=== PATIENT | female | born 1940 | race Caucasian/White ===

== ENCOUNTER 2017-01-05 07:04 | Day surgery (SDC) | payer MEDICARE, BC ==
[2017-01-04 10:50] VITALS: BMI 22.6
[~2017-01-05 07:04] MED LIST: FLU VACC TS2017-18 (>65YR) 0.5 ML SYRINGE IM ONE
[2017-01-05 08:05] VITALS: BP 127/59; TEMP 97.4
--- NOTE | 2017-01-05 11:01 | CT ---
CT CERVICAL SPINE WITH CONTRAST (CT CERVICAL MYELOGRAM): Date: 01-05-17 History: 76-year-old female with right cervical radiculopathy. FINDINGS: There is mild mosaic or hazy ground glass pattern visualized at the lung apices. At the thoracic inl et, there are multiple enlarged lymph nodes just lateral to the lower poles of the thyroid gland and trachea. There are also mildly enlarged upper and mediastinal pretracheal lymph nodes. These are in completely imaged. The left medial supraclavicular lymph node, for example, measures approximately 1 x 1.5 cm at the T1 level. Vertebral body heights are maintained. There is moderate to severe disc space narrowing at C5-6 and C6-7 with mild to moderate endplate irregularity. Minimal degenerative retrolisthesis of C5 on C6 an d C6 on C7. No high grade disc space narrowing at any other level. No moderate or severe degenerativ e facet changes at any level. Cervical spinal cord is normal in size. No Chiari I malformation. C1-2: Moderate degenerative changes at atlanto-odontoid junction. Normal atlantooccipital and atlant oaxial joints. No central stenosis. C2-3: Normal. C3-4: Normal. C4-5: Normal. C5-6: Bilateral moderated sized uncovertebral joint osteophytes encroach upon the bilateral neural f oramina, causing moderate bilateral neural foraminal stenosis. The slight retrolisthesis causes mild central spinal canal stenosis. C6-7: The slight retrolisthesis causes a mild degree of central spinal canal stenosis. Moderate size d bilateral uncovertebral joint osteophytes result in bilateral moderate neural foraminal stenosis. C7-T1: Normal. IMPRESSION: 1. Mild cervical spondylosis, consisting of moderate degenerative disc disease isolated to the C5-6 and C6-7 levels where there is bilateral moderate neural foraminal stenosis. 2. The rest of the cervical spine is essentially normal. 3. Nonspecific heterogeneous ground glass or mild mosaic pattern at the bilateral lung apices. 4. Mildly enlarged medial supraclavicular lymph nodes and upper mediastinal lymph nodes, nonspecific . 5. Left subclavian pacemaker. 6. Signs of previous coronary artery bypass graft surgery. POS: [facility]
[2017-01-05] MEDS ORDERED: Iopamidol-M 300 61% 15 ML VIAL ONE (13:33)
--- NOTE | 2017-01-05 15:48 | CT ---
CT LUMBAR SPINE WITH CONTRAST (CT LUMBAR MYELOGRAM): Date: 01-05-17 History: 76-year-old female with bilateral lumbar radiculopathy and low back pain. FINDINGS: When the patient is supine, there is a 16 degree dextroscoliosis with apex of curvature at L2 (when measured from superior endplate of L1 to inferior endplate of L4). This probably worsens when the pa tient stands. There are five standard lumbar type vertebrae. Vertebral body heights are maintained. No high grade disc space narrowing at any level. Alignment is normal. No spondylolysis or spondylolisthesis. Diffu se disc bulges at L2-3, L3-4, L4-5 and L5-S1. The largest is at L2-4, and causes a mild degree of ce ntral spinal canal stenosis. There is no high grade central spinal canal stenosis or high grade neur al foraminal stenosis at any level. There is no nerve root impingement at any level. There are mild to moderate degenerative facet changes on the right at L4-5, and bilaterally at L5-S1. Vertebral bod y heights are maintained. Conus medullaris terminates at upper L1. IMPRESSION: 1. Lumbar dextroscoliosis. 2. The lumbar spondylosis is mild. 3. No high grade central spinal canal stenosis, high grade neural foraminal stenosis, or nerve root impingement, at any level. POS: [facility]
--- NOTE | 2017-01-05 16:06 | RAD ---
MYELOGRAM CERVICAL MYELOGRAM LUMBAR: 01/05/17 HISTORY: 76-year-old female with right cervical radiculopathy and bilateral lumbar radiculopathy. Patient has pacemaker which precludes MRI. TECHNIQUE: Signed informed consent obtained. Environmental Technology Professor radiographs of the C-spine and L- spine obtained. Patient placed in prone CHINESE position on fluoroscopy table. Skin over lower back prepped and draped in the usual sterile fashion. After confirmation that the conus medullaris terminates superior to the L1-2 level on the prior lumbar spine MRI of 04/28/14, the L1-2 level was selected. 25 gauge needle used to apply buffered lidocaine superficially and deeply. 22 gauge spinal needle advanced into the spinal canal from right paramedian approach under brief, intermittent fluoroscopy. Upon brisk returnof clear CSF, a total of 9 mL of the CSF was removed. A total of 9 mL of Isovue M300 was injected intrathecally under brief, intermittent fluoroscopy. Needle was removed. The table was tilted in prone Trendelenburg position to allow the contrast to flow into the cervical spine. The patient was then taken to CT. The patient tolerated the procedure very well. No complications. FINDINGS: There is ample intrathecal contrast material, but there is also epidural contrast material in the delio mbar spine, and in the cervical spine. There is moderate to severe disc space narrowing with end ana te marginal osteophytes at C5-6 and C6-7. No significant degenerative facet changes. The rest of the disc spaces are maintained. Mild dextroscoliosis of lumbar spine. No high grade disc space narrowing or spondylolisthesis in the lumbar spine. No high grade central spinal canal stenosis in the cervical spine or lumbar spine. Le ft subclavian pacemaker. Cholecystectomy clips. Right carotid endarterectomy clips. IMPRESSION: 1. Successful cervical and lumbar myelogram. 2. Predominantly mild cervical spondylosis, consisting of moderate degenerative disc disease is olated to the C5-6 and C6-7 levels. The rest of the cervical spine is relatively normal. 3. Mild dextroscoliosis of lumbar spine. 4. No central stenosis of lumbar spine. 5. See separate report of the CT myelograms. 6. Status post cholecystectomy, right carotid endarterectomy, pacemaker placement, and coronary artery bypass graft surgery. POS: [facility]
== END 2017-01-05 10:40 | disposition home or self-care (01) ==
LOC: RAD 07:04
PROVIDERS: ATTEND Neurological Surgery
PROC: B00B1ZZ Plain Radiography of Spinal Cord using Low Osmolar Contrast (ICD-10-PCS; principal; 2017-01-05)
DX: M54.12 Radiculopathy, cervical region (principal); M54.16 Radiculopathy, lumbar region; E11.9 Type 2 diabetes mellitus without complications; E78.5 Hyperlipidemia, unspecified; I44.7 Left bundle-branch block, unspecified; K21.9 Gastro-esophageal reflux disease without esophagitis; J44.9 Chronic obstructive pulmonary disease, unspecified; I50.9 Heart failure, unspecified; I42.9 Cardiomyopathy, unspecified; Z88.1 Allergy status to other antibiotic agents; Z88.5 Allergy status to narcotic agent; Z88.8 Allergy status to other drugs, medicaments and biological substances; Z79.899 Other long term (current) drug therapy; Z95.0 Presence of cardiac pacemaker; Z90.49 Acquired absence of other specified parts of digestive tract; Z98.890 Other specified postprocedural states; Z87.891 Personal history of nicotine dependence
CPT/HCPCS: 62305; 72126; 72132

== ENCOUNTER 2017-03-22 05:37 | Day surgery (SDC) | payer MEDICARE, BC ==
[2017-03-21 09:06] VITALS: BMI 22.4
--- NOTE | 2017-03-21 21:16 | HP ---
HISTORY OF PRESENT ILLNESS: Ms. Torrez is a 76-year-old woman who presents for evaluation of signific ant right upper extremity C7 pain that began 2 weeks ago. She has not had any of these symptoms befo re. She has bilateral L5 radicular pain as well that she has had for many years, but is not currentl y very concerned with that. She has a CT myelogram from [facility] that reveals C6-C7 patho logy that fits both her symptoms and as such would like to be treated. PAST MEDICAL HISTORY: Diabetes, cardiac arrhythmia, coronary arterial disease. CURRENT MEDICATIONS: Atorvastatin, Zantac, aspirin, nitroglycerin, clonidine, losartan, nifedipine, Ranexa, furosemide, clopidogrel, carvedilol, Premarin, zolpidem, lorazepam, Lantus, metformin. ALLERGIES: DARVOCET, SULFACETAMIDE, TRAMADOL, OPIUM, CODEINE, ADHESIVE BANDAGES, EPINEPHRINE, CIPRO, LEVAQUIN, OMNICEF, and ATORVASTATIN. PHYSICAL EXAMINATION: PSYCHIATRIC: Patient is alert and oriented x3. NEUROLOGIC: Gait is normal, no ataxia. She does have restricted mobility in upper extremities and n maida secondary to pain. She has sensory disturbance over C6-C7 distribution. ASSESSMENT: Cervical radiculopathy. PLAN: Dr. Tejada met with the patient, reviewed imaging. He advocated C7 ACDF. He explained t o the patient the risks, benefits, and alternatives to the procedure. The patient expressed understa nding and would like to move forward with surgery as discussed. I do believe the patient is mentally competent and capable of making medical decisions for herself and we will move forward with surgery as planned.
[2017-03-22] MEDS ORDERED: Fentanyl 100 MCG/2 ML VIAL ONE ×2 (06:04→09:03)
[2017-03-22] MEDS ORDERED: Midazolam HCl 2 mg/2 ml Vial ONE (06:04)
[2017-03-22] MEDS ORDERED: Thrombin 5000 UNITS/5 ML VIAL ONE (06:19)
[2017-03-22] MEDS ORDERED: CEFAZOLIN/Water 2 GM/20 ML SYRINGE ONE (06:20)
[2017-03-22 06:28] LABS: Mean Corpuscular HGB CONC 32.5 g/dL (32.0-36.0); Mean Corpuscular Hemoglobin 31.1 pg (27.0-31.0); Mean Corpuscular Volume 95.6 fl (81.0-99.0); Mean Platelet Volume 6.4 fL (7.4-10.4); Platelet Count 256 thou/uL (130-400); RBC Distribution Width 12.8 % (11.5-14.5); Red Blood Cell (RBC) Count 4.18 mill/uL (4.20-5.40)
[2017-03-22] MEDS ORDERED: Lidocaine 1% w/Epinephrine 1:200K 30 ML VIAL ONE (06:42)
[2017-03-22 06:47] LABS: Anion Gap 13 mmol/L (10-20); BUN (Urea Nitrogen) 13 mg/dL (9.8-20.1); Calc. Creatinine Clearance 45 mL/min (70-130); Calcium 10.3 mg/dL (7.8-10.44); Carbon Dioxide 25 mmol/L (23-31); Chloride 99 mmol/L (98-107); Estimated GFR-MDRD 63; Glucose 109 mg/dL (83-110); Potassium 4.4 mmol/L (3.5-5.1); Sodium 133 mmol/L (136-145)
[2017-03-22] MEDS ORDERED: Vancomycin HCl 500 MG VIAL ONE (07:00)
[2017-03-22] MEDS ORDERED: Meperidine HCl/PF 25 MG/ML VIAL SLOW IVP PRN (07:50)
[2017-03-22] MEDS ORDERED: Promethazine HCl 25 MG/ML VIAL SLOW IVP PRN (07:50)
--- NOTE | 2017-03-22 09:42 | OP ---
DATE OF PROCEDURE: 03/22/2017 SURGEON: Shawn Tejada M.D. SEAT TRIMMER: Orlin Emery PA-C INDICATION: Pain. DIAGNOSIS: Cervical radiculopathy. PROCEDURE: Anterior cervical discectomy and fusion C6-7. ANESTHESIA: General. TECHNIQUE: The patient was brought into the operating room and placed under general anesthesia. She was placed on the table in a supine position. A transverse incision was planned over the lateral as pect of the neck on the right. After prepping and draping and after an appropriate operative pause, the incision was created. The underlying platysma muscle was identified and incised. A blunt tissue plane anterior to the sternocleidomastoid muscle was used to gain access to the prevertebral space. Self-retaining retractors were placed in the wound for optimal exposure. After confirming the appro priate location, an annulotomy was performed in the C6-7 disk space. Under distraction, all disk mat erial as well as anterior and posterior osteophytes were removed. After complete decompression, a 6 mm lordotic PEEK cage packed with allograft and autograft material was placed within the interbody sp michel. An anterior cervical plate was then fashioned to the front of the spine and secured with a tota l of 4 fixed screws. Midline and lateral structures were inspected and found to be free from signifi cant trauma. The wound was irrigated. Hemostasis was maintained throughout. The wound was then rodolfo sed in anatomic layers and a pressure dressing was applied. There were no known procedural complicat ions.
[2017-03-22] MEDS ORDERED: PHENYLEPHRINE-NS 100 MCG/ML 10 ML SYRINGE ONE (13:30)
[2017-03-22] MEDS ORDERED: Succinylcholine Chloride 20 MG/ML 10 ml SYRINGE FS ONE (13:30)
[2017-03-22] MEDS ORDERED: Naloxone HCl 0.4 mg/ml Vial ONE (13:30)
[2017-03-22] MEDS ORDERED: ePHEDrine/0.9% NaCl/PF SYRINGE 50 mg/10 ml ONE (13:30)
[2017-03-22] MEDS ORDERED: Dexamethasone 20 MG/5 ML VIAL ONE (13:30)
[2017-03-22] MEDS ORDERED: Lidocaine 1% PF 5 ML VIAL ONE (13:30)
[2017-03-22] MEDS ORDERED: Ondansetron HCl/PF 4 MG/2 ML Vial ONE (13:30)
[2017-03-22] MEDS ORDERED: Glycopyrrolate 0.2 MG/ML 5 ML SYRINGE ONE (13:30)
[2017-03-22] MEDS ORDERED: Propofol 200 MG/20 ML VIAL ONE (13:30)
--- NOTE | 2017-03-22 14:56 | OP ---
PREOPERATIVE DIAGNOSES: 1. Cervical myelopathy. 2. Need for anterior approach for anterior cervical disk fusion surgery. SURGEON: Hernandez [place] M.D. PHOTO RETOUCHER: Orlin Emery PA-C ESTIMATED BLOOD LOSS: 0 mL COMPLICATIONS: None. ANESTHESIA: GETA with laryngeal nerve monitor. PROCEDURE: 1. Anterior approach to anterior cervical disk fusion surgery. 2. Intraoperative laryngeal nerve monitoring. DESCRIPTION OF PROCEDURE: The patient taken to the operating room and placed supine on the table. G eneral endotracheal anesthesia was obtained by the Anesthesia staff. Direct laryngoscope was used to confirm that the electrodes were within the true vocal cords bilaterally. Following this, tube was secured in the midline of the upper left. Patient was prepped and draped in standard surgical fashio n. An incision approximately 2 cm above the clavicle was then made in a horizontal fashion and skin crease overlying the area of C6/C7. Following this, skin and subcutaneous tissue was incised. Subpl atysmal flaps were elevated superiorly and anteriorly. The fascia of the sternocleidomastoid was aldo ntified and was staying just anterior to this. Dissection was carried medial. The great vessels in the sternocleidomastoid were retracted laterally as the laryngeal structures and the thyroid were ret racted medially. This exposed adequate exposure of the prevertebral space and vertebral bodies of th e appropriate cervical vertebrae. The patient was then turned over to care of Dr. Shawn bello
== END 2017-03-22 12:15 | disposition home or self-care (01) ==
LOC: SDC 05:37
PROVIDERS: ATTEND Neurological Surgery
PROC: 0RG10A0 Fusion of Cervical Vertebral Joint with Interbody Fusion Device, Anterior Approach, Anterior Column, Open Approach (ICD-10-PCS; principal; 2017-03-22)
PROC: 0RT30ZZ Resection of Cervical Vertebral Disc, Open Approach (ICD-10-PCS; 2017-03-22)
DX: M54.12 Radiculopathy, cervical region (principal); M25.78 Osteophyte, vertebrae; E11.9 Type 2 diabetes mellitus without complications; I49.9 Cardiac arrhythmia, unspecified; I25.10 Atherosclerotic heart disease of native coronary artery without angina pectoris; I11.0 Hypertensive heart disease with heart failure; I50.22 Chronic systolic (congestive) heart failure; K21.9 Gastro-esophageal reflux disease without esophagitis; E78.5 Hyperlipidemia, unspecified; I44.7 Left bundle-branch block, unspecified; J44.9 Chronic obstructive pulmonary disease, unspecified; Z79.02 Long term (current) use of antithrombotics/antiplatelets; Z79.82 Long term (current) use of aspirin; Z79.890 Hormone replacement therapy; Z79.4 Long term (current) use of insulin; Z79.899 Other long term (current) drug therapy; Z88.5 Allergy status to narcotic agent; Z88.8 Allergy status to other drugs, medicaments and biological substances; Z88.1 Allergy status to other antibiotic agents; Z91.011 Allergy to milk products; Z95.0 Presence of cardiac pacemaker; Z90.710 Acquired absence of both cervix and uterus; Z98.890 Other specified postprocedural states
CPT/HCPCS: 20930; 20936; 22551; 22845; 22853; 76001; 80048; 85027; 93005; 96374; C1713; 93010; J1100; J2001; J2250; J2310; J2405; J2704; J3010; J3370

== ENCOUNTER 2017-03-26 06:10 | Inpatient (IN) | payer MEDICARE, BC ==
[2017-03-26 07:02] LABS: Actual Bicarbonate (HCO3a) 26.1 mEq/L (22-26); Base Excess (BEa) 0.3 mEq/L (0 (+/-) 2.5); Hemoglobin (Hb) 11.7 g/dL (12.0-16.0); pH, Arterial 7.36 (7.35-7.45)
[2017-03-26 07:02] LABS: #Eosinphils 0.1 thou/uL (0.0-0.7); #Lymphocytes 1.1 thou/uL (1.20-3.40); #Monocytes 0.7 thou/uL (0.11-0.59); #Neutrophils 9.1 thou/uL (1.40-6.50); %Basophils 0.2 % (0.0-1.0); %Eosinophils 1.1 % (0.0-10.0); %Lymphocytes 10.3 % (21.0-51.0); %Monocytes 6.5 % (0.0-10.0); %Neutrophils 81.9 % (42.0-75.0); Hemoglobin 13.4 g/dL (12.0-16.0); Mean Corpuscular HGB CONC 32.9 g/dL (32.0-36.0); Mean Corpuscular Hemoglobin 30.9 pg (27.0-31.0); Mean Corpuscular Volume 94.2 fl (81.0-99.0); Mean Platelet Volume 6.6 fL (7.4-10.4); Platelet Count 280 thou/uL (130-400); RBC Distribution Width 12.6 % (11.5-14.5); Red Blood Cell (RBC) Count 4.32 mill/uL (4.20-5.40); White Blood Cell (WBC) Count 11.1 thou/uL (4.8-10.8)
[2017-03-26 07:03] LABS: Analyzer IN Cardio ER; Calcium, Ionized 1.2 mmol/L (1.12-1.30); Puncture Site RRA
[2017-03-26 07:21] LABS: ALT (SGPT) 9 U/L (8-55); AST (SGOT) 10 U/L (5-34); Alkaline Phosphatase 78 U/L (40-150); Anion Gap 14 mmol/L (10-20); BUN (Urea Nitrogen) 9 mg/dL (9.8-20.1); Bilirubin, Total 0.7 mg/dL (0.2-1.2); CK (CPK) 37 U/L (29-168); Calc. Creatinine Clearance 0 mL/min (70-130); Calcium 9.9 mg/dL (7.8-10.44); Carbon Dioxide 25 mmol/L (23-31); Chloride 92 mmol/L (98-107); Estimated GFR-MDRD 68; Globulin 3.3 g/dL (2.4-3.5); Glucose 166 mg/dL (83-110); Potassium 4.8 mmol/L (3.5-5.1); Protein, Total 7.3 g/dL (6.0-8.3); Sodium 126 mmol/L (136-145)
[2017-03-26 07:27] LABS: CKMB 1.2 ng/mL (0-6.6); Troponin I 0.212 ng/mL (< 0.028)
--- NOTE | 2017-03-26 07:41 | RAD ---
CHEST 1 VIEW: Date: 03/26/17 HISTORY: 75-year-old female for dyspnea and worsening shortness of breath. COMPARISON: 08/04/14. FINDINGS: Left ICD. Postop midline sternotomy. Prominent linear, interstitial, reticulonodular parenchymal case ges bilaterally which have certainly worsened when compared to the prior study of 08/05/15, raising c oncern for bilateral interstitial edema or nonspecific interstitial atypical pneumonia or pneumonitis . Slight blunting of the costophrenic angles probably representing some pleural fluid. No significant cardiomegaly. IMPRESSION: Fairly extensive widespread interstitial parenchymal changes bilaterally which have developed since t he prior 08/05/15 study. Interstitial edema, interstitial pneumonitis are certainly considerations. S hort-term follow-up for clearing or stability. POS: [facility]
[2017-03-26] MEDS ORDERED: Nitroglycerin 2% Ointment 1 INCH/1 GM Packet ONE (08:25)
[2017-03-26] MEDS ORDERED: Cefepime 2 GM/10 ML SYR ONE (08:26)
[2017-03-26] MEDS ORDERED: Dextrose 50% Abboject 50 ML SYRINGE SLOW IVP PRN (08:55)
[2017-03-26] MEDS ORDERED: Dextrose 5% in Water 1,000 ML IV PRN (08:55)
[2017-03-26] MEDS ORDERED: Insulin Regular 300 UNITS/3 ML VIAL SC PRN (08:55)
[2017-03-26] MEDS ORDERED: diphenhydrAMINE 50 MG/ML VIAL ONE (09:51)
[2017-03-26 10:18] LABS: Troponin I 0.224 ng/mL (< 0.028)
[2017-03-26] MEDS ORDERED: Famotidine/PF 20 mg/2ml Vial SLOW IVP SCH ×2 (10:49→11:30)
[2017-03-26] MEDS ORDERED: INSULIN GLARGINE HUM REC ANLOG 18 UNIT SQ SCH (10:49)
[2017-03-26] MEDS ORDERED: NIFEdipine XL 30 MG TAB PO SCH ×2 (10:49→11:30)
[2017-03-26] MEDS ORDERED: Clopidogrel Bisulfate 75 MG TAB PO SCH ×2 (10:49→11:30)
[2017-03-26] MEDS ORDERED: Non-Formulary Item 1 EACH (Ranolazine [Ranexa] 1,000 MG) PO SCH (10:49)
[2017-03-26] MEDS ORDERED: Cefepime 2 GM in Sodium Chloride 0.9% 100 ML IVPB SCH (10:49)
[2017-03-26] MEDS ORDERED: Aspirin 325 mg Enteric Coated Tablet PO SCH ×2 (10:49→11:30)
[2017-03-26] MEDS ORDERED: Non-Formulary Item 1 EACH (Carvedilol [Coreg] 25 MG) PO SCH (10:49)
[2017-03-26] MEDS ORDERED: Enoxaparin Sodium 40 MG/0.4 ML SYRINGE SC SCH ×2 (10:49→11:30)
[2017-03-26] MEDS ORDERED: Vancomycin HCl 1 GM in Sodium Chloride 0.9% 250 ML 250 ML IVPB SCH (10:49)
[2017-03-26 10:52] VITALS: BMI 19.5
[2017-03-26] MEDS ORDERED: Carvedilol 25 MG TAB PO SCH (11:30)
[2017-03-26] MEDS: Sodium Chloride 0.9% 1,000 ML IV SCH (11:51)
[2017-03-26] MEDS ORDERED: Insulin Detemir 100 UNITS/ML 18 UNITS in Pre-Filled Syringe 1 EACH SC SCH (12:00)
[2017-03-26] MEDS: Furosemide 40 MG/4 ML VIAL SLOW IVP SCH (12:11)
[2017-03-26 13:10] LABS: Troponin I 0.289 ng/mL (< 0.028)
[2017-03-26 13:30] LABS: Free T4 (Free Thyroxine) 1.26 ng/dL (0.70-1.48); Thyroid Stimulating Hormone 1.5012 uIU/mL (0.35-4.94)
[2017-03-26] MEDS ORDERED: Furosemide 40 MG/4 ML VIAL SLOW IVP SCH (14:00)
--- NOTE | 2017-03-26 14:25 | HP ---
HISTORY OF PRESENT ILLNESS: Ms. Torrez is a 76-year-old woman. She had spine surgery on of last week and one day later she started experiencing some shortness of breath, positive co ugh. The shortness of breath has been increasing to the point that she had to come to the ER earlier today. In the ER, she was evaluated and she was found to have bilateral pneumonia along with possib le CHF. She is being admitted for management. She denies any associated fever. PAST MEDICAL HISTORY: Remarkable for hypertension, diabetes mellitus, coronary artery disease, CHF, COPD, cerebrovascular accident. PAST SURGICAL HISTORY: Remarkable for CABG, pacemaker placement, carotid endarterectomy, shoulder montesinos rgery, cholecystectomy, appendectomy, tonsillectomy. ALLERGIES: She has allergy to CEFDINIR, CIPROFLOXACIN, CODEINE, DARVOCET, EPINEPHRINE, LEVOFLOXACIN, PROPOXYPHENE, SULFA, TRAMADOL, ULTRAM, VICODIN. SOCIAL HISTORY: She quit smoking when she was 21-year-old and even at that time she was not a heavy smoker. She denies ETOH abuse. She denies drug abuse. FAMILY HISTORY: Reviewed and is not contributory. HOME MEDICATIONS: Reviewed. REVIEW OF SYSTEMS: Constitutional: Denies any fever. Admits to some weakness. HEENT: No headache , no ocular pain, no sore throat, no rhinorrhea, no earache, no epistaxis. Neck: Some neck pain ass ociated with recent surgery. Cardiovascular: Admit to shortness of breath. No chest pain. Pulmona ry: Productive cough. Gastrointestinal: She has diarrhea on and off. There is no nausea, no vomit ing, no abdominal pain. Genitourinary: No dysuria, no hematuria. Endocrinology: No heat or cold i ntolerance. No polyuria, polydipsia, or polyphagia. Musculoskeletal: Admits to arthritis. Hematol ogy: No abnormal bleeding. No ecchymosis. Lymphatic: No palpable lymphadenopathy. No painful lym phadenopathy. Skin: No rash, no itching. Allergies: No hayfever. Neurologic: No seizure. Psych iatric: No anxiety, no depression. PHYSICAL EXAMINATION: GENERAL: At the current time, she is alert, oriented, with nasal cannula. VITAL SIGNS: Temperature of 98.1, pulse rate 91, respiratory rate 26, blood pressure 141/72. HEENT: Her head is normocephalic and atraumatic. Pupils are equally reactive. Ears and nose normal . Oral mucosa is moist. Pharyngeal area is clear with no exudate, no hyperemia. NECK: Supple. There is no distention of the jugular vein. No lymphadenopathy felt. Thyroid gland not palpable. There is no carotid bruit. CHEST: Symmetrical with regular S1 and S2. LUNGS: Show some rhonchi. ABDOMEN: Soft. Bowel sounds are heard. I could not appreciate any organomegaly. There is no focal area of tenderness. EXTREMITIES: Limbs showed no edema. NEUROLOGIC: She moves all extremities. LABORATORY DATA: CBC showed WBC 11.1, hemoglobin of 13.4, hematocrit of 40.7, MCV of 94.2, platelet of 280. Chemistry and electrolytes show sodium of 126, potassium 4.8, chloride 92, CO2 of 25, BUN 9, creatinine 0.8, glucose 166, calcium 9.9, total bilirubin 0.7, AST 10, ALT 9, alkaline phosphatase 7 8. Troponin was noticed to be elevated at 0.212. BNP is elevated at 600.3. Albumin is 4, globulin 3.3. Chest x-ray was reported to show widespread interstitial parenchymal changes bilaterally, possi ble interstitial edema versus pneumonitis. ASSESSMENT AND PLAN: This is a 76-year-old woman with history of hypertension, diabetes me llitus, coronary artery disease, congestive heart failure, chronic obstructive pulmonary disease, cer ebrovascular accident, who is status post C-spine surgery less than 1 week ago who came in with incre asing shortness of breath. Chest x-ray result is as we indicated earlier. At this time, we suspect possible aspiration versus pneumonia along with congestive heart failure. The patient will be starte d on broad spectrum antibiotic for possible healthcare associated pneumonia and we will start her als o on Lasix. Her serum sodium was noticed to be low consistent with history of congestive heart failu re. We will start her on Lasix as mentioned earlier. She will also be on fluid restriction. The pa lisa was noticed to have troponin elevated, which will be followed and addressed appropriately. The patient will be admitted to telemetry. Further evaluation and management will depend on her course of the hospitalization and her response to therapy.
[2017-03-26] MEDS ORDERED: Nitroglycerin 2% Ointment 1 INCH/1 GM Packet TOP SCH (16:00)
[2017-03-26] MEDS: Acetaminophen 325 MG TAB PO PRN (16:51)
[2017-03-26] MEDS: Losartan 25 MG TAB PO SCH (21:00)
[2017-03-26] MEDS: Famotidine/PF 20 mg/2ml Vial SLOW IVP SCH (21:00)
[2017-03-26] MEDS: Cefepime 2 GM, Syringe 2.5 ML in Sterile Water 10 ML SLOW IVP SCH (21:00)
[2017-03-26] MEDS: Carvedilol 25 MG TAB PO SCH (21:00)
[2017-03-26] MEDS: Vancomycin HCl 1 GM in Premix Bag 1 BAG IVPB SCH (21:01)
[2017-03-26] MEDS: Zolpidem Tartrate 5 MG TAB PO PRN (22:42)
[2017-03-27] MEDS: HYDROcodone/Acetaminophen 5/325 mg Tablet PO PRN ×2 (04:36→11:52)
[2017-03-27 05:08] LABS: #Eosinphils 0.2 thou/uL (0.0-0.7); #Monocytes 0.7 thou/uL (0.11-0.59); #Neutrophils 4.2 thou/uL (1.40-6.50); %Basophils 0.7 % (0.0-1.0); %Eosinophils 3.5 % (0.0-10.0); %Lymphocytes 16.1 % (21.0-51.0); %Monocytes 11.6 % (0.0-10.0); %Neutrophils 68.1 % (42.0-75.0); Hemoglobin 11.3 g/dL (12.0-16.0); Mean Corpuscular HGB CONC 32.2 g/dL (32.0-36.0); Mean Corpuscular Hemoglobin 30.5 pg (27.0-31.0); Mean Corpuscular Volume 94.6 fl (81.0-99.0); Mean Platelet Volume 6.2 fL (7.4-10.4); Platelet Count 267 thou/uL (130-400); RBC Distribution Width 12.5 % (11.5-14.5); Red Blood Cell (RBC) Count 3.71 mill/uL (4.20-5.40); White Blood Cell (WBC) Count 6.2 thou/uL (4.8-10.8)
[2017-03-27 05:23] LABS: Anion Gap 12 mmol/L (10-20); BUN (Urea Nitrogen) 8 mg/dL (9.8-20.1); Calc. Creatinine Clearance 52 mL/min (70-130); Calcium 9.5 mg/dL (7.8-10.44); Carbon Dioxide 27 mmol/L (23-31); Chloride 94 mmol/L (98-107); Estimated GFR-MDRD 75; Glucose 109 mg/dL (83-110); Potassium 3.9 mmol/L (3.5-5.1); Sodium 129 mmol/L (136-145)
[2017-03-27] MEDS: Furosemide 40 MG/4 ML VIAL SLOW IVP SCH (06:03)
[2017-03-27] MEDS: Vancomycin HCl 1 GM in Premix Bag 1 BAG IVPB SCH ×2 (09:00→20:41)
[2017-03-27] MEDS: Cefepime 2 GM, Syringe 2.5 ML in Sterile Water 10 ML SLOW IVP SCH ×2 (09:00→20:41)
[2017-03-27] MEDS: Insulin Detemir 100 UNITS/ML 18 UNITS in Pre-Filled Syringe 1 EACH SC SCH (09:01)
[2017-03-27] MEDS: NIFEdipine XL 30 MG TAB PO SCH (09:02)
[2017-03-27] MEDS: Carvedilol 25 MG TAB PO SCH ×2 (09:02→20:33)
[2017-03-27] MEDS: Clopidogrel Bisulfate 75 MG TAB PO SCH (09:02)
[2017-03-27] MEDS: Famotidine/PF 20 mg/2ml Vial SLOW IVP SCH ×2 (09:02→20:33)
[2017-03-27] MEDS: Aspirin 325 mg Enteric Coated Tablet PO SCH (09:02)
[2017-03-27] MEDS: Enoxaparin Sodium 40 MG/0.4 ML SYRINGE SC SCH (09:03)
--- NOTE | 2017-03-27 11:21 | PDOC.PN ---
- Subjective Encounter Start Date: 03/27/17 Encounter Start Time: 11:20 Ms. Torrez was seen today in follow-up of pneumonia. She is laying flat in bed, and does not appear to be in any distress. She says she is breathing better. She does not have any chest pain. She informs be that her serum sodium is " always low". She says her appetite is better. - Objective Resuscitation Status: Resuscitation Status FULL:Full Resuscitation MAR Reviewed: Yes Vital Signs & Weight: Vital Signs (12 hours) Temp Pulse Resp BP Pulse Ox 03/27/17 09:02 92 03/27/17 08:00 97.6 F 92 16 148/68 H 97 03/27/17 03:04 98.3 F 88 16 162/70 H 85 L 03/27/17 00:13 95 Weight Weight 115 lb 14.4 oz I&O: 03/26/17 03/27/17 03/28/17 06:59 06:59 06:59 Intake Total 1564 Balance 1564 Result Diagrams: 03/27/17 04:34 03/27/17 04:34 Additional Labs: Accuchecks 03/27/17 03/27/17 03/26/17 10:56 05:44 20:54 POC Glucose 276 H 120 H 277 H 03/26/17 16:59 POC Glucose 132 H Phys Exam - Physical Examination HEENT: PERRLA + rales boltaerally no rhonchi Cardiovascular: RRR, no significant murmur, no rub Gastrointestinal: soft, non-tender, positive bowel sounds Musculoskeletal: no edema Dx/Plan (1) Pneumonia Code(s): J18.9 - PNEUMONIA, UNSPECIFIED ORGANISM Status: Acute (2) Chronic systolic heart failure Code(s): I50.22 - CHRONIC SYSTOLIC (CONGESTIVE) HEART FAILURE Status: Acute (3) Diabetes mellitus type 2 in nonobese Code(s): E11.9 - TYPE 2 DIABETES MELLITUS WITHOUT COMPLICATIONS Status: Acute (4) Afib Code(s): I48.91 - UNSPECIFIED ATRIAL FIBRILLATION Status: Acute - Plan * Acute respiratory distress- likely from Pneumonia.- Possible Healthcare Associated- continue Levaquin Cefepime, and Vancomycin * Can consider de-escalating antibiotics in AM if stable * Chronic systolic heart failure- compensated- will check Echo to assess EF, * DM- blood glucose is slightly elevated- will re-start Metformin * HTN- blood pressure is elevated- will monitor, continue PRN medication as well * CAD- stable
[2017-03-27] MEDS: Sodium Chloride 0.9% 1,000 ML IV SCH (11:58)
[2017-03-27] MEDS: Acetaminophen 325 MG TAB PO PRN (14:15)
[2017-03-27] MEDS: Ondansetron HCl/PF 4 MG/2 ML Vial IVP PRN ×2 (14:15→20:41)
[2017-03-27] MEDS ORDERED: Nitroglycerin 0.4 MG TAB (25 Tab Bottle) ONE (14:18)
[2017-03-27] MEDS: Bisacodyl 5 MG TAB PO PRN (14:18)
[2017-03-27] MEDS ORDERED: Nitroglycerin 0.4 MG TAB (25 Tab Bottle) SL PRN (15:26)
[2017-03-27] MEDS: metFORMIN 500 MG TAB PO SCH (16:02)
[2017-03-27 20:14] LABS: Vancomycin, Trough 17.2 ug/mL
[2017-03-27] MEDS: Magnesium Oxide 250 MG TAB PO SCH (20:33)
[2017-03-27] MEDS: Atorvastatin Calcium 10 MG TAB PO SCH (20:33)
[2017-03-27] MEDS: Lorazepam 1 MG TAB PO SCH (20:33)
[2017-03-27] MEDS: Losartan 25 MG TAB PO SCH ×2 (20:34)
[2017-03-27] MEDS: Zolpidem Tartrate 5 MG TAB PO PRN (22:50)
[2017-03-28 05:56] LABS: Anion Gap 11 mmol/L (10-20); BUN (Urea Nitrogen) 6 mg/dL (9.8-20.1); Calc. Creatinine Clearance 54 mL/min (70-130); Calcium 9.2 mg/dL (7.8-10.44); Carbon Dioxide 29 mmol/L (23-31); Chloride 87 mmol/L (98-107); Estimated GFR-MDRD 76; Glucose 143 mg/dL (83-110); Sodium 123 mmol/L (136-145)
[2017-03-28] MEDS: metFORMIN 500 MG TAB PO SCH ×2 (09:29→16:37)
[2017-03-28] MEDS: Insulin Detemir 100 UNITS/ML 18 UNITS in Pre-Filled Syringe 1 EACH SC SCH (09:29)
[2017-03-28] MEDS: Carvedilol 25 MG TAB PO SCH ×2 (09:29→21:21)
[2017-03-28] MEDS: Famotidine/PF 20 mg/2ml Vial SLOW IVP SCH ×2 (09:29→21:20)
[2017-03-28] MEDS: NIFEdipine XL 30 MG TAB PO SCH (09:29)
[2017-03-28] MEDS: Aspirin 325 mg Enteric Coated Tablet PO SCH (09:29)
[2017-03-28] MEDS: Enoxaparin Sodium 40 MG/0.4 ML SYRINGE SC SCH (09:29)
[2017-03-28] MEDS: Magnesium Oxide 250 MG TAB PO SCH ×2 (09:30→21:21)
[2017-03-28] MEDS: Clopidogrel Bisulfate 75 MG TAB PO SCH (09:30)
[2017-03-28] MEDS ORDERED: Sodium Chloride 0.9% 1,000 ML IV SCH ×2 (10:15→17:37)
--- NOTE | 2017-03-28 10:18 | PDOC.PN ---
- Subjective Encounter Start Date: 03/28/17 Encounter Start Time: 10:16 Ms. Torrez was seen today in follow-up of Pneumonia. she says she is breathing easier, but her main problem now, is hurting across her upper back and neck. she also says she vomited multiple times last night, and she believes it was due to pain. she denies any abdominal pain. - Objective Resuscitation Status: Resuscitation Status FULL:Full Resuscitation MAR Reviewed: Yes Vital Signs & Weight: Vital Signs (12 hours) Temp Pulse Resp BP BP Pulse Ox 03/28/17 09:29 84 164/70 H 03/28/17 07:25 99.6 F 84 18 164/70 H 98 03/28/17 03:18 98.4 F 82 14 153/67 H 92 L 03/27/17 23:08 98 F 80 16 104/50 L 96 Weight Weight 117 lb 6.4 oz I&O: 03/27/17 03/28/17 03/29/17 06:59 06:59 06:59 Intake Total 1564 737 Balance 1564 737 Result Diagrams: 03/27/17 04:34 03/28/17 05:09 Additional Labs: Accuchecks 03/28/17 03/27/17 03/27/17 05:15 21:21 16:58 POC Glucose 148 H 241 H 189 H 03/27/17 10:56 POC Glucose 276 H Phys Exam - Physical Examination HEENT: PERRLA + rales at both bases Cardiovascular: RRR, no significant murmur, no rub Gastrointestinal: soft, non-tender, positive bowel sounds Musculoskeletal: no edema Dx/Plan (1) Pneumonia Code(s): J18.9 - PNEUMONIA, UNSPECIFIED ORGANISM Status: Acute (2) Chronic systolic heart failure Code(s): I50.22 - CHRONIC SYSTOLIC (CONGESTIVE) HEART FAILURE Status: Acute (3) Diabetes mellitus type 2 in nonobese Code(s): E11.9 - TYPE 2 DIABETES MELLITUS WITHOUT COMPLICATIONS Status: Acute (4) Afib Code(s): I48.91 - UNSPECIFIED ATRIAL FIBRILLATION Status: Acute - Plan * Pneumonia- she has been afebrile- and she appears to be improving- will discontinue Vancomycin and Cefepime, but continue Levaquin * Hyponatremia- worse overnight, but this may be due to vomiting- will place back on saline infusion * Vomiting- ? etiology possibly due to pain- will observe, she just finished breakfast, and appears comfortable right now. * Acute on chronic systolic heart failure vs. Chronic systolic heart failure- awaiting Echo * Recent C-spine surgery- patient says she is having some pain in her neck region, and is requesting to see Dr. Tejada or Orlin Emery * Patient needs to ambulate- will consult PT/OT
[2017-03-28] MEDS: Estrogens, Conjugated 30 GM TUBE TOP SCH (10:28)
[2017-03-28] MEDS: Cefepime 2 GM, Syringe 2.5 ML in Sterile Water 10 ML SLOW IVP SCH (11:23)
[2017-03-28] MEDS: Ondansetron HCl/PF 4 MG/2 ML Vial IVP PRN ×2 (11:23→21:20)
[2017-03-28] MEDS: Vancomycin HCl 1 GM in Premix Bag 1 BAG IVPB SCH (11:23)
[2017-03-28] MEDS: HYDROcodone/Acetaminophen 5/325 mg Tablet PO PRN ×2 (13:12→21:21)
[2017-03-28] MEDS ORDERED: Promethazine 25 MG TAB PO PRN (16:17)
[2017-03-28] MEDS ORDERED: Promethazine HCl 25 MG/ML VIAL IM/IV PRN (16:17)
[2017-03-28] MEDS ORDERED: Metoclopramide HCl 10 MG/2 ML VIAL IVP SCH (16:30)
[2017-03-28 17:05] LABS: Sodium 123 mmol/L (136-145)
[2017-03-28] MEDS: Losartan 25 MG TAB PO SCH ×2 (21:20)
[2017-03-28] MEDS: Bisacodyl 5 MG TAB PO PRN (21:21)
[2017-03-28] MEDS: Atorvastatin Calcium 10 MG TAB PO SCH (21:21)
[2017-03-28] MEDS: Lorazepam 1 MG TAB PO SCH (21:21)
[2017-03-28] MEDS: Zolpidem Tartrate 5 MG TAB PO PRN (22:11)
[2017-03-29 06:21] LABS: Anion Gap 11 mmol/L (10-20); BUN (Urea Nitrogen) 6 mg/dL (9.8-20.1); Calc. Creatinine Clearance 62 mL/min (70-130); Calcium 8.6 mg/dL (7.8-10.44); Carbon Dioxide 28 mmol/L (23-31); Chloride 90 mmol/L (98-107); Estimated GFR-MDRD 87; Glucose 110 mg/dL (83-110); Potassium 3.9 mmol/L (3.5-5.1); Sodium 125 mmol/L (136-145)
[2017-03-29] MEDS: metFORMIN 500 MG TAB PO SCH ×2 (08:29→17:20)
[2017-03-29] MEDS: Aspirin 325 mg Enteric Coated Tablet PO SCH (08:30)
[2017-03-29] MEDS: Carvedilol 25 MG TAB PO SCH ×2 (08:30→20:46)
[2017-03-29] MEDS: Enoxaparin Sodium 40 MG/0.4 ML SYRINGE SC SCH (08:30)
[2017-03-29] MEDS: Clopidogrel Bisulfate 75 MG TAB PO SCH (08:30)
[2017-03-29] MEDS: Famotidine 20 MG TAB PO SCH ×2 (08:31→20:45)
[2017-03-29] MEDS: Magnesium Oxide 250 MG TAB PO SCH ×2 (08:31→20:46)
[2017-03-29] MEDS: NIFEdipine XL 30 MG TAB PO SCH (08:32)
[2017-03-29] MEDS: Insulin Detemir 100 UNITS/ML 18 UNITS in Pre-Filled Syringe 1 EACH SC SCH (10:03)
[2017-03-29] MEDS: Estrogens, Conjugated 30 GM TUBE TOP SCH (12:26)
--- NOTE | 2017-03-29 14:25 | PDOC.PN ---
- Subjective Encounter Start Date: 03/29/17 Encounter Start Time: 14:23 Ms. Torrez says she feels much better. She says the nausea has resolved, and she says she is breathing better. She tells me she walked with PT off oxygen and felt alright. - Objective Resuscitation Status: Resuscitation Status FULL:Full Resuscitation MAR Reviewed: Yes Vital Signs & Weight: Vital Signs (12 hours) Temp Pulse Pulse Pulse Resp BP BP 03/29/17 11:08 98.5 F 80 18 03/29/17 09:05 86 87 152/65 H 03/29/17 08:32 83 125/60 03/29/17 08:00 97.7 F 83 20 03/29/17 07:23 97.7 F 83 20 03/29/17 03:22 97.7 F 82 16 BP BP Pulse Ox Pulse Ox 03/29/17 11:08 125/56 L 95 03/29/17 09:05 150/66 H 90 L 03/29/17 08:32 03/29/17 08:00 93 L 03/29/17 07:23 125/60 93 L 03/29/17 03:22 109/56 L 97 Weight Weight 121 lb I&O: 03/28/17 03/29/17 03/30/17 06:59 06:59 06:59 Intake Total 737 3044 Balance 737 3044 Result Diagrams: 03/27/17 04:34 03/29/17 05:18 Additional Labs: Accuchecks 03/29/17 03/29/17 03/28/17 10:38 06:22 21:22 POC Glucose 214 H 198 H 174 H 03/28/17 17:14 POC Glucose 196 H Phys Exam - Physical Examination HEENT: PERRLA + rales in both lung bases, diminished from yesterday Cardiovascular: RRR, no significant murmur, no rub Gastrointestinal: soft, non-tender, positive bowel sounds Musculoskeletal: no edema Dx/Plan (1) Pneumonia Code(s): J18.9 - PNEUMONIA, UNSPECIFIED ORGANISM Status: Acute (2) Chronic systolic heart failure Code(s): I50.22 - CHRONIC SYSTOLIC (CONGESTIVE) HEART FAILURE Status: Acute (3) Diabetes mellitus type 2 in nonobese Code(s): E11.9 - TYPE 2 DIABETES MELLITUS WITHOUT COMPLICATIONS Status: Acute (4) Afib Code(s): I48.91 - UNSPECIFIED ATRIAL FIBRILLATION Status: Acute - Plan * Pneumonia- clinically improved- will begin weaning supplemental oxygen as tolerated * Hyponatremia- serum sodium is a bit better- will re-check * Nausea- likely due to medications- much improved * Still awaiting ECHO- however her symptoms have improved, and she does not appear volume overloaded, nor does she clinically appear to have suffered an Acute coronary syndrome- she may be discharged prior to the Echo if necessary. * DM- blood glucose is stable.
[2017-03-29 14:54] LABS: Sodium 127 mmol/L (136-145)
[2017-03-29] MEDS ORDERED: Furosemide 40 MG/4 ML VIAL SLOW IVP SCH (17:15)
[2017-03-29] MEDS: Zolpidem Tartrate 5 MG TAB PO PRN (20:45)
[2017-03-29] MEDS: Atorvastatin Calcium 10 MG TAB PO SCH (20:46)
[2017-03-29] MEDS: Losartan 25 MG TAB PO SCH (20:46)
[2017-03-29] MEDS: HYDROcodone/Acetaminophen 5/325 mg Tablet PO PRN (22:59)
[2017-03-30 06:04] LABS: Anion Gap 13 mmol/L (10-20); BUN (Urea Nitrogen) 6 mg/dL (9.8-20.1); Calc. Creatinine Clearance 56 mL/min (70-130); Calcium 8.9 mg/dL (7.8-10.44); Carbon Dioxide 30 mmol/L (23-31); Chloride 88 mmol/L (98-107); Estimated GFR-MDRD 81; Potassium 3.6 mmol/L (3.5-5.1); Sodium 127 mmol/L (136-145)
[2017-03-30 06:06] LABS: Glucose 49 mg/dL (83-110)
[2017-03-30] MEDS: Magnesium Oxide 250 MG TAB PO SCH ×2 (09:04→20:50)
[2017-03-30] MEDS: Aspirin 325 mg Enteric Coated Tablet PO SCH (09:05)
[2017-03-30] MEDS: Carvedilol 25 MG TAB PO SCH ×2 (09:05→20:51)
[2017-03-30] MEDS: Famotidine 20 MG TAB PO SCH ×2 (09:05→20:50)
[2017-03-30] MEDS: NIFEdipine XL 30 MG TAB PO SCH (09:05)
[2017-03-30] MEDS: Clopidogrel Bisulfate 75 MG TAB PO SCH (09:05)
[2017-03-30] MEDS: Enoxaparin Sodium 40 MG/0.4 ML SYRINGE SC SCH (09:08)
[2017-03-30] MEDS: metFORMIN 500 MG TAB PO SCH ×2 (09:09→16:41)
[2017-03-30] MEDS: Insulin Detemir 100 UNITS/ML 18 UNITS in Pre-Filled Syringe 1 EACH SC SCH ×3 (09:16→10:45)
[2017-03-30] MEDS: HYDROcodone/Acetaminophen 5/325 mg Tablet PO PRN ×2 (10:36→18:32)
[2017-03-30] MEDS: Estrogens, Conjugated 30 GM TUBE TOP SCH (10:46)
--- NOTE | 2017-03-30 14:23 | PDOC.PN ---
- Subjective Encounter Start Date: 03/30/17 Encounter Start Time: 14:22 Ms. Torrez was seen today in follow-up. She says she does not feel as well today as yesterday. Yesterday evening, she had an episode of shortness of breath with decreasing oxygen saturations. She was given Lasix IV and diuresed, and has had some partial relief. - Objective Resuscitation Status: Resuscitation Status FULL:Full Resuscitation MAR Reviewed: Yes Vital Signs & Weight: Vital Signs (12 hours) Temp Pulse Resp BP BP Pulse Ox 03/30/17 12:00 98.5 F 75 16 129/59 L 100 03/30/17 09:05 84 137/64 03/30/17 08:00 98.5 F 86 20 137/64 99 03/30/17 03:22 98.9 F 78 20 109/53 L 98 Weight Weight 116 lb 3.2 oz I&O: 03/29/17 03/30/17 03/31/17 06:59 06:59 06:59 Intake Total 3044 1410 Output Total 700 Balance 3044 710 Result Diagrams: 03/27/17 04:34 03/30/17 05:21 Additional Labs: Accuchecks 03/30/17 03/30/17 03/30/17 10:35 05:57 05:40 POC Glucose 193 H 91 57 L* 03/29/17 03/29/17 22:31 16:54 POC Glucose 103 136 H Phys Exam - Physical Examination HEENT: PERRLA Respiratory: no wheezing rales- improved Cardiovascular: RRR, no significant murmur Gastrointestinal: soft, non-tender, positive bowel sounds trace pedal edema Dx/Plan (1) Pneumonia Code(s): J18.9 - PNEUMONIA, UNSPECIFIED ORGANISM Status: Acute (2) Chronic systolic heart failure Code(s): I50.22 - CHRONIC SYSTOLIC (CONGESTIVE) HEART FAILURE Status: Acute (3) Diabetes mellitus type 2 in nonobese Code(s): E11.9 - TYPE 2 DIABETES MELLITUS WITHOUT COMPLICATIONS Status: Acute (4) Afib Code(s): I48.91 - UNSPECIFIED ATRIAL FIBRILLATION Status: Acute (5) HTN (hypertension) Code(s): I10 - ESSENTIAL (PRIMARY) HYPERTENSION Status: Acute - Plan * Acute respiratory faulre- likely due to a combination of Pneumonia as well as Diastolic heart failure- will continue antibiotics, but will change to Azithromycin due to intolerance to Levaquin * Diastolic heart failure- discussed with Dr. Macias. He notes that her volume status is difficult to manage, and he will be consulted to help in her management * DM- she had a few low blood glucose readings- will monitor * HTN- blood pressure is stable. * Hyponatremia- chronic- continue to monitor closely
[2017-03-30] MEDS ORDERED: Azithromycin 500 MG in Sodium Chloride 0.9% 250 ML 250 ML IVPB SCH (15:00)
--- NOTE | 2017-03-30 16:44 | CON ---
DATE OF CONSULTATION: 03/29/2017 at 06:30 HISTORY OF PRESENT ILLNESS: Ms. Torrez is a 76-year-old woman who was admitted to [facility] a couple days ago for pneumonia. She is postoperative day 7 following an ACDF. Neurosurgery was ul timately consulted because she is having extended dysphagia and what she thought was some trouble ozzy athing. She also has some intrascapular pain. I think all this after review of the bedside is serjio blanc for a patient who has had an ACDF roughly a week ago. She does have the typical looking non-erythe matous incision. Steri-Strips are in place and I think overall she looks to be exactly how I would e xpect. There is no intervention that Neurosurgery recommended. We will keep her normally scheduled followup in the outpatient clinics next week.
[2017-03-30] MEDS ORDERED: Furosemide 40 MG/4 ML VIAL SLOW IVP SCH (18:45)
[2017-03-30] MEDS ORDERED: Potassium Chloride 20 MEQ TAB PO SCH (18:45)
[2017-03-30] MEDS ORDERED: Furosemide 80 MG TAB PO SCH (18:45)
--- NOTE | 2017-03-30 19:02 | CON ---
DATE OF CONSULTATION: 03/30/2017 CARDIOLOGY CONSULTATION REASON FOR CONSULTATION: Congestive heart failure. HISTORY OF PRESENT ILLNESS: Ms. Sydnee Torrez is a pleasant 76-year-old woman. The patient recently un derwent cervical spine surgery which was done successfully. She later became short of breath and carmine massey came to the emergency room on 03/26/2017. She initially was unclear whether it was pneumonia or heart failure, but I think it is probably heart failure as well outlined below. The patient receive d a dose of Lasix last night with good clinical response. PAST MEDICAL HISTORY: 1. Coronary artery disease. 2. CHF, diastolic. 3. COPD. 4. History of stroke. PAST SURGICAL HISTORY: 1. Previous bypass. 2. Previous carotid endarterectomy. 3. Pacemaker insertion. ALLERGIES: TRAMADOL, ULTRAM, EPINEPHRINE, DARVOCET, CODEINE. SOCIAL HISTORY: Quit smoking when she was 21 years old. FAMILY HISTORY: Negative for heart disease at a young age. REVIEW OF SYSTEMS: CONSTITUTIONAL: No significant weight gain or loss. VISION: No changes. HEARING: No changes. PULMONARY: No cough or wheezing. GASTROINTESTINAL: No nausea, vomiting, diarrhea. SKIN: No rashes. NEUROLOGIC: No unilateral weakness or numbness. PSYCHIATRIC: No unusual depression or anxiety. HEMATOLOGIC: No unusual bruising. GENITOURINARY: No burning with urination. PHYSICAL EXAMINATION: GENERAL: This is a pleasant, thin, elderly woman in no distress. VITAL SIGNS: Blood pressure 128/59, pulse 76 regular. EYES: Sclerae nonicteric. Mouth, mucous membranes moist. NECK: Supple. No lymphadenopathy. LUNGS: Clear, no wheezing, rales or rhonchi. CARDIAC: Normal S1, normal S2. There is no murmur, rub or gallop. ABDOMEN: Soft, nontender, no hepatosplenomegaly. EXTREMITIES: Warm, dry, no clubbing, cyanosis or edema. DIAGNOSTIC DATA: Echocardiogram showed ejection fraction is 50%-55%, but she has PA systolic pressur es 40 mmHg systolic and moderate to severe mitral regurgitation and other pertinent laboratory here, serum sodium is 127. The BNP was 600.3. Chest x-ray shows to my interpretation congestive heart katy lure. ASSESSMENT: 1. Congestive heart failure with the troponin level peaked 0.289, probably demand ischemia. 2. Coronary artery disease, best treated medically. 3. Previous pacemaker insertion. 4. History of hyponatremia. PLAN: 1. Continue diuretic therapy and she does not have an IV now. Therefore, give an oral dose of furos emide. 2. Fluid restrict to avoid further worsening of the hyponatremia. We will follow with you. We will also stop nifedipine at this point or Procardia, as blood pressure is relatively low.
[2017-03-30] MEDS: Ondansetron HCl/PF 4 MG/2 ML Vial IVP PRN (20:50)
[2017-03-30] MEDS: Losartan 25 MG TAB PO SCH (20:50)
[2017-03-30] MEDS: Atorvastatin Calcium 10 MG TAB PO SCH (20:50)
[2017-03-30] MEDS: Acetaminophen 325 MG TAB PO PRN (20:50)
[2017-03-30] MEDS: Zolpidem Tartrate 5 MG TAB PO PRN (22:13)
[2017-03-31 06:19] LABS: Anion Gap 13 mmol/L (10-20); BUN (Urea Nitrogen) 7 mg/dL (9.8-20.1); Calc. Creatinine Clearance 50 mL/min (70-130); Calcium 9.3 mg/dL (7.8-10.44); Carbon Dioxide 32 mmol/L (23-31); Chloride 87 mmol/L (98-107); Estimated GFR-MDRD 73; Potassium 3.7 mmol/L (3.5-5.1); Sodium 128 mmol/L (136-145)
[2017-03-31 06:22] LABS: Glucose 45 mg/dL (83-110)
--- NOTE | 2017-03-31 08:33 | PDOC.PN ---
- Subjective Encounter Start Date: 03/31/17 Encounter Start Time: 08:31 Subjective: Seen and examined no new complaint -: Hypoglycemic this am - Objective Resuscitation Status: Resuscitation Status FULL:Full Resuscitation Vital Signs & Weight: Vital Signs (12 hours) Temp Pulse Resp BP Pulse Ox 03/31/17 08:00 98.5 F 81 16 107/47 L 96 03/31/17 04:00 97.6 F 65 18 108/55 L 99 03/31/17 00:00 75 16 118/59 L 96 Weight Weight 114 lb 5 oz I&O: 03/30/17 03/31/17 04/01/17 06:59 06:59 06:59 Intake Total 1410 1060 Output Total 700 1200 Balance 710 -140 Result Diagrams: 03/27/17 04:34 03/31/17 05:22 Additional Labs: Accuchecks 03/31/17 03/31/17 03/30/17 06:18 05:43 20:47 POC Glucose 99 51 L* 115 H 03/30/17 03/30/17 16:59 10:35 POC Glucose 145 H 193 H Phys Exam - Physical Examination Constitutional: NAD HEENT: PERRLA, moist MMs, sclera anicteric, TM's clear Neck: no nodes, no JVD, supple, full ROM Respiratory: no wheezing, no rales, no rhonchi, clear to auscultation bilateral Cardiovascular: RRR, no significant murmur, no rub Gastrointestinal: soft, non-tender, no distention, positive bowel sounds Dx/Plan (1) SIADH (syndrome of inappropriate ADH production) Status: Acute - Plan continue antibiotics, PT/OT, social human services assistants, respiratory therapy Diuresis--decrease levemir dose -: Change zithromax to po -: Appreciate Cardiology input -: Dispo planning--wean oxygen off if possible -: work up the hyponatremia with some urine studies * .
[2017-03-31] MEDS: Estrogens, Conjugated 30 GM TUBE TOP SCH (09:35)
[2017-03-31] MEDS: HYDROcodone/Acetaminophen 5/325 mg Tablet PO PRN (09:35)
[2017-03-31] MEDS: Famotidine 20 MG TAB PO SCH ×2 (09:36→21:06)
[2017-03-31] MEDS: metFORMIN 500 MG TAB PO SCH ×2 (09:36→15:17)
[2017-03-31] MEDS: Carvedilol 25 MG TAB PO SCH ×2 (09:36→21:05)
[2017-03-31] MEDS: Enoxaparin Sodium 40 MG/0.4 ML SYRINGE SC SCH (09:36)
[2017-03-31] MEDS: Clopidogrel Bisulfate 75 MG TAB PO SCH (09:36)
[2017-03-31] MEDS: Magnesium Oxide 250 MG TAB PO SCH ×2 (09:36→21:06)
[2017-03-31] MEDS: Aspirin 325 mg Enteric Coated Tablet PO SCH (09:36)
[2017-03-31] MEDS: Insulin Detemir 100 UNITS/ML 18 UNITS in Pre-Filled Syringe 1 EACH SC SCH (10:53)
[2017-03-31] MEDS: Azithromycin 200 MG/5 ML Oral Suspension PO SCH (11:35)
[2017-03-31 13:26] LABS: Osmolality, Urine 339 mOsm/kg (300-900)
[2017-03-31 13:42] LABS: Sodium, Urine 36 mmol/L (Not Available)
[2017-03-31] MEDS ORDERED: Loperamide HCl 2 MG CAP PO SCH (14:15)
[2017-03-31] MEDS ORDERED: Potassium Chloride 20 MEQ TAB PO SCH (17:00)
[2017-03-31] MEDS ORDERED: Furosemide 20 MG/2 ML VIAL SLOW IVP SCH (17:00)
--- NOTE | 2017-03-31 17:57 | PRG ---
DATE OF SERVICE: 03/31/2017. SUBJECTIVE: Ms. Torrez is breathing much better today. She had a good response to the oral diuretic last night. She states it is difficult for her to swallow and she has some pain into the right shoul alejandro blade and substernal when she tries to swallow. OBJECTIVE: VITAL SIGNS: Blood pressure 142/64, pulse was 70. LUNGS: Clear. CARDIAC: Normal S1 and S2. ABDOMEN: Soft, nontender. EXTREMITIES: There is no edema. Sodium level is 128. ASSESSMENT: 1. Congestive heart failure, systolic/diastolic combined, mostly diastolic, improved. 2. Hyponatremia, actually improved after a dose of diuretic. 3. Hypertension. 4. Mitral regurgitation. PLAN: 1. She is on Losartan 50 mg a day. 2. Furosemide will go to 20 mg a day. 3. Carvedilol 25 mg twice a day. 4. Aspirin and Plavix. 5. Stop Procardia-XL, may worsen her heart failure with calcium blockers.
[2017-03-31] MEDS ORDERED: Losartan 25 MG TAB PO SCH (21:00)
[2017-03-31] MEDS: Zolpidem Tartrate 5 MG TAB PO PRN (21:05)
[2017-03-31] MEDS: Atorvastatin Calcium 10 MG TAB PO SCH (21:06)
[2017-03-31] MEDS: Acetaminophen 325 MG TAB PO PRN (21:06)
[2017-04-01] MEDS: HYDROcodone/Acetaminophen 5/325 mg Tablet PO PRN (05:33)
[2017-04-01] MEDS: Famotidine 20 MG TAB PO SCH (08:56)
[2017-04-01] MEDS: metFORMIN 500 MG TAB PO SCH ×2 (08:57→17:05)
[2017-04-01] MEDS: Carvedilol 25 MG TAB PO SCH (08:57)
[2017-04-01] MEDS: Magnesium Oxide 250 MG TAB PO SCH (08:57)
[2017-04-01] MEDS: Clopidogrel Bisulfate 75 MG TAB PO SCH (08:58)
[2017-04-01] MEDS: Aspirin 325 mg Enteric Coated Tablet PO SCH (08:58)
[2017-04-01] MEDS: Enoxaparin Sodium 40 MG/0.4 ML SYRINGE SC SCH (08:58)
[2017-04-01] MEDS: Estrogens, Conjugated 30 GM TUBE TOP SCH (08:59)
[2017-04-01] MEDS ORDERED: Furosemide 20 MG TAB PO SCH (09:00)
[2017-04-01 09:14] LABS: Sodium 123 mmol/L (136-145)
[2017-04-01] MEDS: Azithromycin 200 MG/5 ML Oral Suspension PO SCH (09:48)
[2017-04-01] MEDS: Ondansetron HCl/PF 4 MG/2 ML Vial IVP PRN (09:50)
[2017-04-01] MEDS ORDERED: Loperamide HCl 2 MG CAP PO PRN (10:48)
[2017-04-01] MEDS ORDERED: Conivaptan 20 MG in Premix Bag 1 BAG IVPB SCH (11:15)
[2017-04-01 15:31] VITALS: BP 145/67; TEMP 98.7
[2017-04-01 16:05] LABS: Sodium 129 mmol/L (136-145)
--- NOTE | 2017-04-01 19:57 | PDOC.CTH ---
Cardiology Progress Note - Subjective She is feeling much better. No new issues. Breathing at baseline. - Objective Vital Signs Temp Pulse Resp BP Pulse Ox 04/01/17 15:02 98.7 F 83 18 145/67 H 94 L 04/01/17 11:03 98.4 F 75 18 129/64 90 L 04/01/17 08:00 98.3 F 76 18 93 L Weight 118 lb 6.4 oz 03/31/17 04/01/17 04/02/17 06:59 06:59 06:59 Intake Total 4442 323 6515 Output Total 2752 872 8940 Balance -140 -60 0 - Physical Examination General/Neuro: alert & oriented x3, NAD Neck: no JVD present Lungs: unlabored respirations Heart: RRR Abdomen: NT/ND Extremities: other: (mild ankle edema.) - Telemetry Telemetry Rhythm: NSR - Labs Result Diagrams: 03/27/17 04:34 04/01/17 15:41 Troponin/CKMB CK-MB (CK-2) 1.2 ng/mL (0-6.6) 03/26/17 06:36 Troponin I 0.289 ng/mL (< 0.028) H 03/26/17 12:36 - Assessment/Plan 1. Acute systolic/diastolic heart failure. 2. HTN 3. MR PLAN: - May discharge home, seems close to euvolemic. - Follow up with Dr. Macias as scheduled.
--- NOTE | 2017-04-03 09:06 | DIS ---
For details of the history and physical and the consultative notes, please refer to the dictations on record. SUMMARY: This is a 76-year-old female patient, who had a recent back surgery that presented with aashish rtness of breath and noted to have evidence of bilateral pneumonia and congestive heart failure exace rbation. Patient was seen and consulted upon by various consultants including Neurosurgery and Cardi ology. The patient did maintain sustained clinical improvement responded with diuretics and antibiot ics. PERTINENT DIAGNOSES TREATED DURING THIS HOSPITALIZATION: Include the followin. Bilateral pneumonia. 2. Congestive heart failure. 3. Chronic obstructive pulmonary disease. 4. Hyponatremia. PHYSICAL EXAMINATION: GENERAL: Patient on the day of discharge were noted not to be in any obvious distress, very eager to go home, noted with following vital signs. VITAL SIGNS: Afebrile with temperature 98.7, pulse 83, respiratory rate of 18, O2 sats 94% on room a ir, blood pressure 145/67. The rest of the system examination unremarkable. DISCHARGE MEDICATIONS: Patient is discharged on following medications: Aspirin 325 b.i.d., Zithroma x 500 mg p.o. daily, Coreg 25 mg p.o. b.i.d., vitamin D3, Plavix 75 mg p.o. daily, estrogen cream, fu rosemide 20 mg p.o. daily, Lantus 18 units subcu in the morning, lorazepam 1 mg p.o. at bedtime, losa rtan 25 mg p.o. at bedtime, metformin 1000 mg p.o. b.i.d., nifedipine XL 30 mg p.o. daily, Prot kiah 40 mg p.o. daily, pravastatin 40 mg p.o. at bedtime, Ranexa 1000 mg p.o. daily in the morning, T izanidine 2 mg p.o. b.i.d. DISCHARGE INSTRUCTIONS: 1. Follow up with the primary care physician. 2. Represent here in case of any relapse or deterioration in clinical condition. 3. Stay compliant with medications. The total time spent during this discharge including the [id number] encounter, 32 minutes.
--- NOTE | 2017-04-08 19:07 | EKG ---
Test Reason : Blood Pressure : / mmHG Vent. Rate : 089 BPM Atrial Rate : 089 BPM P-R Int : 140 ms QRS Dur : 134 ms QT Int : 410 ms P-R-T Axes : 044 170 090 degrees QTc Int : 498 ms Atrial-sensed ventricular-paced rhythm Abnormal ECG Confirmed by NIKKI CORREA MD ([id number]), website/blog editor CARY KIM ([id number]) on 04/08/2017 7:07:12 PM Referred By: Confirmed By:NIKKI CORREA MD
== END 2017-04-01 18:20 | disposition home or self-care (01) | DRG 291 ==
LOC: ERS 06:10 → 2SE 10:43
PROVIDERS: ADMIT Hospitalist; ATTEND Hospitalist
DX: I11.0 Hypertensive heart disease with heart failure (principal); J18.9 Pneumonia, unspecified organism; E22.2 Syndrome of inappropriate secretion of antidiuretic hormone; I24.8 Other forms of acute ischemic heart disease; E11.9 Type 2 diabetes mellitus without complications; I48.2 Chronic atrial fibrillation; I34.0 Nonrheumatic mitral (valve) insufficiency; J44.0 Chronic obstructive pulmonary disease with (acute) lower respiratory infection; I50.43 Acute on chronic combined systolic (congestive) and diastolic (congestive) heart failure; I25.10 Atherosclerotic heart disease of native coronary artery without angina pectoris; Z86.73 Personal history of transient ischemic attack (TIA), and cerebral infarction without residual deficits; Z95.1 Presence of aortocoronary bypass graft; Z95.0 Presence of cardiac pacemaker; Z88.1 Allergy status to other antibiotic agents; Z88.5 Allergy status to narcotic agent; Z88.2 Allergy status to sulfonamides; Z88.8 Allergy status to other drugs, medicaments and biological substances; F17.210 Nicotine dependence, cigarettes, uncomplicated; Z98.1 Arthrodesis status; Y95 Nosocomial condition
CPT/HCPCS: 36415; 36416; 71045; 80048; 80053; 80202; 82550; 82553; 82805; 83880; 83935; 84295; 84300; 84439; 84443; 84484; 85025; 87040; 87324; 87449; 93005; 93306; 93798; 94640; 94760; 96365; 96375; A4216; G8978-GP-CJ; G8979-GP-CJ; G8980-GP-CJ; G8987-GO-CI; G8988-GO-CI; G8989-GO-CI; J0456; J0692; J1200; J1650; J1815; J1940; J1956; J2405; J2765; J3370; J7050; J7620; S0028

== ENCOUNTER 2017-05-30 09:52 | Outpatient (CLI) | payer MEDICARE, BC ==
--- NOTE | 2017-05-30 11:13 | RAD ---
3 VIEWS OF CERVICAL SPINE: Date: 05/30/17 COMPARISON: None. HISTORY: Cervical radiculopathy. Cervical spine surgery 6 weeks ago. FINDINGS: Anterior diskectomy and fusion hardware is present at C6-7 level. There is disc space narrowing, dege nerative end plate change, and anterior osteophyte formation at C4-5 and C5-6. There is no evidence f or hardware failure. There is no anterolisthesis or retrolisthesis seen. There is mild soft tissue prominence in the prevertebral space at C6-7 at the level of postsurgical c hange. Clinical correlation is required as to the significance of this mild soft tissue swelling, whi ch could simply be postoperative in nature. Partially imaged midline sternotomy wires, mediastinal clips, and transvenous pacing device. Open-lawrence th odontoid view demonstrates a normal appearing dens and C1-2 articulation. IMPRESSION: Postoperative and degenerative change within the cervical spine. There is soft tissue prominence of t he prevertebral space anterior to the postoperative hardware measuring up to 1.9 cm in AP dimension, significance uncertain. This could simply represent postoperative swelling. Follow-up imaging and/or CT may be beneficial as clinically warranted. POS: ERICKA
== END 2017-05-30 09:53 | disposition home or self-care (01) ==
LOC: TBSIIMAG 09:52
PROVIDERS: ATTEND Neurological Surgery
DX: M47.22 Other spondylosis with radiculopathy, cervical region (principal); T81.89XD Other complications of procedures, not elsewhere classified, subsequent encounter; Z98.890 Other specified postprocedural states
CPT/HCPCS: 72040